=== PATIENT | male | born 1965 | race Caucasian/White ===

== ENCOUNTER 2018-12-20 14:32 | Emergency (ER) | payer OTHER, SELFPAY ==
--- NOTE | 2018-12-20 14:47 | NUR.NOTE ---
pt was bitten by a tick approximately 1300 pt removed it withing 3 min. pt is concerned about [place] and would like to have first dose antibiotic
[2018-12-20 14:49] VITALS: BP 128/83; PULSE 84; RESP 18; TEMP 36.8; O2SAT 95
--- NOTE | 2018-12-20 15:11 | W.ED.GENAD ---
Discharge Plan Disposition Patient Disposition: HOME Condition: Good Discharge Details Chief Complaint: GenMedical Clinical Impression: Tick bite of knee Primary Care Provider: Marianne,Local ED Provider: Wilton Marcano Discharge Instructions Instructions: Lyme Disease (ED), Tick Bite (ED) Additional Instructions: Watch for any signs of infection or worsening illness as discussed and seek follow-up appointment if these occur. It is recommended that you use DEET or other bug spray to prevent further insect bites. Referrals: Primary Care Provider [Outside] (Follow-up with your primary care provider as needed for reassessment) Discharge Data Discharge Date/Time-TO BE ENTERED AT DEPARTURE: 12/20/18 15:27 Medical Decision Making Tick bite, right medial knee, ecchymosis and mild erythema surrounding otherwise patient is asymptomatic. Patient feels that it may have only been attached for 4 hours as he states that he did not notice it yesterday. Patient did bring in tick and it does appear to be a black legged deer tick. Given that it is not greater than 24 hours we did discuss typical course of transmission of Lyme disease and low likelihood but he said he would feel more comfortable receiving prophylactic single dose of doxycycline. Patient very anxious about Lyme transmission and he is not from this area. Patient given 200 mg of doxycycline as he states he has had this before with no allergic reaction and no other issues. Thoroughly discussed signs of Lyme disease and reasons to obtain reassessment for further treatment after discussion of diagnosis and plan of care patient is no further needs, questions, or concerns and states clear understanding to return to the emergency department for any worsening symptoms. HPI General Mode of arrival: ambulatory. Date/Time Provider Initiated Documentation: 12/20/18 15:11. Limitations to Documentation: no limitations. Information obtained by: patient and RN notes reviewed. History of Present Illness 53 year old M presents to the emergency department with the chief complaint of tick bite, Quality is described as other (denies pain), and is localized to the right and lower extremity. Patient started experiencing this hour(s) (4) and it has been now resolved. Patient notes no other symptoms.. Patient did receive the following treatments prior to arrival, none General Stated Complaint: GenMedical JOHN: 5 Review of Systems Constitutional Denies body ache(s), Denies chills and Denies fever(s) Musculoskeletal Denies arthralgias and Denies joint swelling Integumentary/Breasts Reports as per HPI and Denies rash PFSH Social History Alcohol Intake: current Alcohol Intake frequency: a few times a week Substance use type: does not use Do you feel safe at home: Yes Do you feel safe in your relationship?: Yes Exam Const General: cooperative, no acute distress and not ill appearing Orientation: alert, awake and oriented x3 HENMT Mouth: moist mucous membranes Resp Effort & Inspection: normal respiratory effort, able to speak in complete sentences and no respiratory distress Skin General skin exam: erythema (Small circular area right medial knee) Course Vital Signs Temperature 36.8 C 12/20/18 14:49 Pulse 84 12/20/18 14:49 Respiratory Rate 18 12/20/18 14:49 Blood Pressure 128/83 12/20/18 14:49 Pulse Oximetry 95 12/20/18 14:49 Temperature 36.8 C 12/20/18 14:49 Temperature Source Skin 12/20/18 14:49 Pulse 84 12/20/18 14:49 Respiratory Rate 18 12/20/18 14:49 Blood Pressure 128/83 12/20/18 14:49 Blood Pressure Position Sitting 12/20/18 14:49 Pulse Oximetry 95 12/20/18 14:49 Oxygen Delivery Method Room Air 12/20/18 14:49 Oxygen Flow Rate 0 12/20/18 14:49 Pain Level 0 12/20/18 14:49
--- NOTE | 2018-12-20 15:17 | ED.GENADUL_ITS ---
Discharge Plan Disposition Patient Disposition: HOME Condition: Good Discharge Details Chief Complaint: GenMedical Clinical Impression: Tick bite of knee Primary Care Provider: Marianne,Local ED Provider: Wilton Marcano Discharge Instructions Instructions: Lyme Disease (ED), Tick Bite (ED) Additional Instructions: Watch for any signs of infection or worsening illness as discussed and seek follow-up appointment if these occur. It is recommended that you use DEET or other bug spray to prevent further insect bites. Referrals: Primary Care Provider [Outside] (Follow-up with your primary care provider as needed for reassessment) Discharge Data Discharge Date/Time-TO BE ENTERED AT DEPARTURE: 12/20/18 15:27 Medical Decision Making Tick bite, right medial knee, ecchymosis and mild erythema surrounding otherwise patient is asymptomatic. Patient feels that it may have only been attached for 4 hours as he states that he did not notice it yesterday. Patient did bring in tick and it does appear to be a black legged deer tick. Given that it is not greater than 24 hours we did discuss typical course of transmission of Lyme disease and low likelihood but he said he would feel more comfortable receiving prophylactic single dose of doxycycline. Patient very anxious about Lyme transmission and he is not from this area. Patient given 200 mg of doxycycline as he states he has had this before with no allergic reaction and no other issues. Thoroughly discussed signs of Lyme disease and reasons to obtain reassessment for further treatment after discussion of diagnosis and plan of care patient is no further needs, questions, or concerns and states clear understanding to return to the emergency department for any worsening symptoms. HPI General Mode of arrival: ambulatory . Date/Time Provider Initiated Documentation: 12/20/18 15:11 . Limitations to Documentation: no limitations . Information obtained by: patient and RN notes reviewed . History of Present Illness 53 year old M presents to the emergency department with the chief complaint of tick bite, Quality is described as other (denies pain), and is localized to the right and lower extremity. Patient started experiencing this hour(s) (4) and it has been now resolved. Patient notes no other symptoms.. Patient did receive the following treatments prior to arrival, none General Stated Complaint: GenMedical JOHN: 5 Review of Systems Constitutional Denies body ache(s), Denies chills and Denies fever(s) Musculoskeletal Denies arthralgias and Denies joint swelling Integumentary/Breasts Reports as per HPI and Denies rash PFSH Social History Alcohol Intake: current Alcohol Intake frequency: a few times a week Substance use type: does not use Do you feel safe at home: Yes Do you feel safe in your relationship?: Yes Exam Const General: cooperative, no acute distress and not ill appearing Orientation: alert, awake and oriented x3 HENMT Mouth: moist mucous membranes Resp Effort & Inspection: normal respiratory effort, able to speak in complete sentences and no respiratory distress Skin General skin exam: erythema (Small circular area right medial knee) Course Vital Signs Temperature 36.8 C 12/20/18 14:49 Pulse 84 12/20/18 14:49 Respiratory Rate 18 12/20/18 14:49 Blood Pressure 128/83 12/20/18 14:49 Pulse Oximetry 95 12/20/18 14:49 Temperature 36.8 C 12/20/18 14:49 Temperature Source Skin 12/20/18 14:49 Pulse 84 12/20/18 14:49 Respiratory Rate 18 12/20/18 14:49 Blood Pressure 128/83 12/20/18 14:49 Blood Pressure Position Sitting 12/20/18 14:49 Pulse Oximetry 95 12/20/18 14:49 Oxygen Delivery Method Room Air 12/20/18 14:49 Oxygen Flow Rate 0 12/20/18 14:49 Pain Level 0 12/20/18 14:49
[2018-12-20 15:24] VITALS: BP 128/83; PULSE 84; RESP 17; RESP 18; TEMP 36.8; O2SAT 95
[2018-12-20] MEDS: Doxycycline Hyclate 100 MG CAP 200 MG PO (15:24)
== END 2018-12-20 15:27 | disposition home or self-care (01) ==
PROVIDERS: Emergency Provider Nurse Practitioner Family
DX: S80.261A Insect bite (nonvenomous), right knee, initial encounter (principal); W57.XXXA Bitten or stung by nonvenomous insect and other nonvenomous arthropods, initial encounter
CPT/HCPCS: 99283